=== PATIENT | male | born 1950 | race Caucasian/White ===

== ENCOUNTER 2021-08-23 09:37 | Day surgery (SDC) | payer MEDICARE ==
[~2021-08-23] VITALS: Ht 185.4 cm; Wt 94.7 kg
[~2021-08-23 09:37] MED LIST: ACET325 PO; ERGO50000; IBUP400; MOBIC15 MG; Multiple Vitam1 EAC1 PO; PRAV20 PO; Zinc 15 MG Loze15 MG
== END 2021-08-23 11:20 | disposition home or self-care (01) ==
LOC: ORSCSDS 09:37
PROVIDERS: Internal Medicine Gastroenterology
PROC: 0DJD8ZZ Inspection of Lower Intestinal Tract, Via Natural or Artificial Opening Endoscopic (ICD-10-PCS; principal; 2021-08-23 10:45)
DX: Z12.11 Encounter for screening for malignant neoplasm of colon (principal); Z86.010 Personal history of colon polyps; K57.30 Diverticulosis of large intestine without perforation or abscess without bleeding; Z79.899 Other long term (current) drug therapy
CPT/HCPCS: J2704; J7120

== ENCOUNTER 2021-10-14 16:02 | Inpatient (IN) | payer MEDICARE ==
[~2021-10-14] VITALS: Ht 185.4 cm; Wt 85.7 kg
[2021-10-14] MEDS ORDERED: B COMPLEX FORM0.4 MG PO (16:23)
[2021-10-14 16:26] LABS: BASOPHILS ABSOLUTE AUTO 0.04 K/mm3 (0.00-0.23); BASOPHILS PERCENT AUTO 1 % (0-2); EOSINOPHILS ABSOLUTE AUTO 0.06 K/mm3 (0.00-0.68); EOSINOPHILS PERCENT AUTO 1 % (0-6); Hematocrit 43.5 % (37.0-53.0); Hemoglobin 14.4 g/dL (13.5-17.5); IMMATURE GRAN ABSOLUTE AUTO 0.02 K/mm3 (0.00-0.10); IMMATURE GRAN PERCENT AUTO 0 % (0-1); LYMPHOCYTES ABSOLUTE AUTO 1.41 K/mm3 (0.84-5.20); LYMPHOCYTES PERCENT AUTO 19 % (21-46); MONOCYTES ABSOLUTE AUTO 0.74 K/mm3 (0.16-1.47); MONOCYTES PERCENT AUTO 10 % (4-13); Mean Corpuscular HGB 29.8 pg (26.0-34.0); Mean Corpuscular HGB Conc 33.1 g/dL (31.5-36.5); Mean Corpuscular Volume 90 fL (80-100); Mean Platelet Volume 11.1 fL (9.1-12.4); NEUTROPHILS ABSOLUTE AUTO 5.06 K/mm3 (1.96-9.15); NEUTROPHILS PERCENT AUTO 69 % (41-73); Platelet Count 189 K/mm3 (150-400); RDW Standard Deviation 42.7 fL (35.1-46.3); Red Blood Cell Count 4.83 M/mm3 (4.30-5.90); White Blood Cell Count 7.33 K/mm3 (4.00-11.30)
[2021-10-14 16:54] LABS: Alanine Aminotransfer (ALT/SGP 25 U/L (12-78); Albumin, Blood 3.7 g/dL (3.4-5.0); Albumin/Globulin Ratio 0.9 (0.8-1.8); Alk Phos 51 U/L (50-136); Anion Gap 5 mmol/L (6-16); Aspartate Aminotrans (AST/SGOT 23 U/L (12-37); Bilirubin, Total 0.5 mg/dL (0.1-1.0); Blood Urea Nitrogen 17 mg/dL (8-24); Bun/Creatinine Ratio 19.7 (12.0-20.0); CO2, Blood 26 mmol/L (21-32); Calcium, Blood 9.5 mg/dL (8.5-10.1); Chloride, Blood 110 mmol/L (98-108); Creatinine, Blood 0.86 mg/dL (0.60-1.20); Globulin, Blood 4.2 g/dL (2.2-4.0); Glomerular Filtration Rate >60 (60-); Glucose, Blood 106 mg/dL (70-99); Potassium, Blood 3.7 mmol/L (3.5-5.5); Sodium, Blood 141 mmol/L (136-145); Total Protein, Blood 7.9 g/dL (6.4-8.2)
--- NOTE | 2021-10-15 00:45 | NUR ---
PATIENT CAME VIA STRETCHER FROM ED AT 0002, ALERT AND ORIENTATED ABLE TO MAKE NEEDS KNOWN, ORIENTATED TO THE ROOM, CALL LIGHT, STAND BY ASSIST, TELEMETRY IN PLACE, VITAL SIGNS TAKEN, CONSENTS SIGNED, WAS CALLED BY THE PATIENT TO INFORM HER WHAT ROOM HE IS IN, PATIENT HAS HIS WALLET ON HIM AND EDUCATED ON HAVING HIS TAKE IT HOME WITH HER, WEDDING RING IN PLACE NO OTHER VALUABLES BESIDES CLOTHING, PATIENT DECLINES HAVING WALLET LOCKED UP.
[2021-10-15 01:25] LABS: Influenza A, PCR NEGATIVE (NEGATIVE); Influenza B, PCR NEGATIVE (NEGATIVE); Resp Syncytial Virus, PCR NEGATIVE (NEGATIVE); SARS-Cov-2 (COVID-19) PCR, MMC NEGATIVE (NEGATIVE)
--- NOTE | 2021-10-15 09:07 | NUR ---
Echocardiogram completed.
--- NOTE | 2021-10-15 16:48 | NUR ---
Initial Assessment with [facility] [employer] 1. Who did you speak with? Spoke with patient 2. What is the patient's prior level of functions? Independent ambulatory. Patient lives at home with his Argelia. 3. What is the patient's current living situation? Independent ambulatory. Patient lives at home with his Argelia. Patient has a safe home environment with utilities. Patient has strong support network. His son lives nearby. 4. Is the patient and/or family able to provide transportation to and from doctor's appointments and product picker prescriptions? Patient drives and has transportation. 5. Does patient still drive? Yes 6. POA/PCP/NOK: PCP-PCP is Dr. Handy Chowdhury. NOK is Argelia. 7. ANTICIPATED DISCHARGE NEEDS/GOALS: -Return to residence after pacemaker placed. Patient scheduled to discharge over the weekend. -DME: TBD -HELP AT HOME: TBD 8. List barriers to discharge: No barriers on this date. 9. Discharge Plan: Home and will discharge over the weekend after pacemaker placed. 10. PCP Follow up appointment: Will be scheduled within seven calendar days of discharge. 11. OTHER COMMENTS: None
--- NOTE | 2021-10-15 17:14 | NUR ---
SHIFT SUMMARY; ASSUMED CARE AT 0700, REPORT FROM EMIL. Coy/Coy/MATTIE DURING SHIFT. HR [id number]. DENIES SOB OR CHEST PAIN. AWAITING PACEMAKER PLACEMENT. SCHEDULED FOR TOMORROW. NPO AFTER MIDNIGHT. NO ACUTE CHANGES DURING SHIFT. WILL CONTINUE TO MONITOR AND TREAT UNTIL CHANGE OF SHIFT.
--- NOTE | 2021-10-16 05:45 | NUR ---
PATIENT HAD NO ACUTE CHANGES OVERNIGHT AWAITING PROCEDURE THIS AM.
--- NOTE | 2021-10-16 17:48 | NUR ---
VSS. C/O OF R CHEST PAIN R/T NEW PACER INSERTION- MORPHINE X2, TYLENOL X1, ROBAXIN X1; ADEQUATE CONTROL OF PAIN PER PT. AFEBRILE. AUO. NO BM. TOLERATING CURRENT DIET. NEW PACER PLACED- PRESSURE DRESSING REMOVED AT 16:00, TRANSPARENT DRESSING REMAINS INTACT WITH DRIED DRAINAGE. TENTATIVE EKG AND PACER INTERROGATION SCHEDULED TOMORROW WITH POSSIBLE D/C HOME. FREQUENT ROUNDS TO ENSURE PT SAFETY. PT IN NO APPARENT DISTRESS AT THIS TIME. WILL CONTINUE TO MONITOR UNTIL TRANSFER OF CARE TO ONCOMING RN.
--- NOTE | 2021-10-17 04:31 | NUR ---
PATIENT RESTED MOST OF THE NIGHT, MODERATE DISCOMFORT AT THE [facility] POST PACER MAKER SITE, SITE HAS A DRESSSING WITH NOTED DRY BLOOD INTACT, SKIN AROUND THE SITE IS UNREMARKABLE WITH NO NOTED KREPITUS.
[2021-10-17] MEDS ORDERED: ELIQUIS5 M2 PO (12:16)
[2021-10-17] MEDS ORDERED: CEPH500 PO (12:17)
[2021-10-17] MEDS ORDERED: METO25 PO (12:18)
[2021-10-17] MEDS ORDERED: ONDA4 PO (12:19)
[2021-10-17] MEDS ORDERED: OXAYDO5 M1 PO (12:20)
--- NOTE | 2021-10-17 13:48 | NUR ---
VERBAL AND WRITTEN DISCHARGE INSTRUCTIONS PROVIDED TO PT WITH CLEAR UNDERSTANDING. DRESSING IN PLACE AT SITE WITH NO DRAINAGE. RIGHT ARM IN SLING. DC'D VIA WHEECHAIR WITH SPOUSE.
--- NOTE | 2021-10-18 07:48 | NUR ---
Per Dr. Bradford discharge appropriate (discharged on 10/17/21). Patient did not oppose discharge. Patient's spouse provided transportation to their residence. Patient is ambulatory with sling on right arm. Patient will be contacted by transitional care to schedule PCP hospital follow-up (seven days post discharge). No barriers to discharge at this time.
== END 2021-10-17 13:01 | disposition home or self-care (01) | DRG 244 ==
LOC: ER 16:02 → ERHOLD 16:03 → PCU 16:03
PROVIDERS: Physician Assistant; ADMIT Internal Medicine
PROC: 0JH606Z Insertion of Pacemaker, Dual Chamber into Chest Subcutaneous Tissue and Fascia, Open Approach (ICD-10-PCS; principal; 2021-10-16)
PROC: 02HK3JZ Insertion of Pacemaker Lead into Right Ventricle, Percutaneous Approach (ICD-10-PCS; 2021-10-16)
PROC: 02H63JZ Insertion of Pacemaker Lead into Right Atrium, Percutaneous Approach (ICD-10-PCS; 2021-10-16)
DX: I44.2 Atrioventricular block, complete (principal); I48.0 Paroxysmal atrial fibrillation; I47.1 Supraventricular tachycardia; Z79.899 Other long term (current) drug therapy; Z86.010 Personal history of colon polyps; Z98.890 Other specified postprocedural states; Z88.1 Allergy status to other antibiotic agents; Z90.49 Acquired absence of other specified parts of digestive tract
CPT/HCPCS: 0241U; 33208; 36415; 71046; 80053; 83735; 84443; 84484; 85025; 93005; 93010; 93306; 99152; 99153; 99285-25; A9270; C1781; C1785; C1894; C1898; C9113; G0378; J0690; J1644; J2250; J2270; J2405; J3010; J7040; Q9967